=== PATIENT | female | born 1955 | race Caucasian/White ===

== ENCOUNTER 2017-02-04 23:41 | Emergency (ER) | payer MEDICARE, OTHER ==
--- NOTE | 2017-02-05 00:47 | ED.PDOC ---
History of Present Illness - General Chief Complaint: Head Injury Stated Complaint: fall / hit head and face Time Seen by Provider: 02/05/17 00:25 Source: patient, RN notes reviewed, Vital Signs reviewed Exam Limitations: no limitations - History of Present Illness Initial Comments: Patient comes to the ER with c/o injury to her L cheek and the back of her head. She tripped while leaving a high school reunion and struck her L cheek on the opening bar of a door. She then spun around and hit the back of her head on the floor. No LOC. No neck pain. Denies any other injuries. No visual changes. No loose teeth or dental pain. Occurred: just prior to arrival Severity: moderate Head Injury Location: other - L zygomatic arch Method of Injury: fell Loss of Consciousness: no loss of consciousness Associated Symptoms: denies symptoms Allergies/Adverse Reactions: Allergies NO KNOWN ALLERGY Allergy (Verified 02/04/17 23:56) Review of Systems - Review of Systems Constitutional: States: no symptoms reported EENTM: States: see HPI. Denies: blurred vision, double vision, nose pain, mouth pain Respiratory: States: no symptoms reported Cardiology: States: no symptoms reported Musculoskeletal: States: no symptoms reported. Denies: back pain, neck pain Skin: States: change in color - bruising L cheek Neurological: States: no symptoms reported All other Systems: No Change from Baseline Past Medical History (General) - Patient Medical History Hx Seizures: No Hx Stroke: No Hx Dementia: No Hx Asthma: No Hx of COPD: No Hx Cardiac Disorders: No Hx Congestive Heart Failure: No Hx Pacemaker: No Hx Hypertension: Yes Hx Thyroid Disease: Yes - hyper Hx Diabetes: No Hx Gastroesophageal Reflux: No Hx Renal Disease: No Hx Cancer: Yes - Basal cell carcinoma Hx of HIV: No Hx Hepatitis C: No Hx MRSA: No Surgical History: appendectomy, tonsillectomy, other - Vaccination History Hx Tetanus, Diphtheria Vaccination: No Hx Influenza Vaccination: No Hx Pneumococcal Vaccination: No Immunizations Up to Date: Yes - Social History Hx Tobacco Use: No Hx Alcohol Use: No Hx Substance Use: No - Activities of Daily Living Hospice Agency (if applicable):: None - Female History Patient is a Female of Child Bearing Age (10 -59 yrs old): No Family Medical History - Family History Mother Family History: Unknown Physical Exam - Physical Exam General Appearance: Alert, Comfortable, No apparent distress, Well Developed, Well Groomed, Well Hydrated, Well Nourished Head Injury: ecchymosis - L zygomatic arch, swelling - L zygomatic arch & L occipital area, tenderness - L zygomatic arch & L occipial area Eye Exam: bilateral normal ENT Exam: hearing grossly normal, no dental injury Neck Exam: non-tender, full range of motion, normal alignment, normal inspection Cardiovascular/Respiratory: regular rate, rhythm, no M/R/G, normal breath sounds , no respiratory distress Extremity: normal range of motion, non-tender, normal inspection 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, 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 Exam: normal hearing, normal speech, PERRL, other - EOMI, CN 2-12 are grossly intact Coordination/Gait: normal gait Motor/Sensory: no motor deficit, no sensory deficit Skin Exam: normal color, warm/dry Comments: Vital Signs 02/04/17 23:56 Temperature 98.4 F Pulse Rate [ 60 Left radial] Respiratory 20 Rate Blood Pressure 176/95 [Left Arm] O2 Sat by Pulse 94 L Oximetry - Diana Coma Score Best Eye Response (Diana): (4) open spontaneously Best Verbal Response (Diana): (5) oriented Best Motor Response ([place]): (6) obeys commands Progress - EKG/XRAY/CT CT Ordered: Yes - No orbital fracture per Radiologist Departure - Departure Clinical Impression: Contusion of scalp, initial encounter, Hematoma, Fall on same level as cause of accidental injury Contusion of face Qualifiers: Encounter type: initial encounter Qualified Code(s): S00.83XA - Contusion of other part of head, initial encounter Time of Disposition: 01:19 Disposition: Discharge to Home or Self Care Condition: Good Departure Forms: ED Discharge - Pt. Copy, Patient Portal Self Enrollment Instructions: DI for Contusion, Eye Contusion Diet: resume usual diet Activity: increase activity as tolerated
--- NOTE | 2017-02-05 00:54 | CT ---
EXAM DATE: 02/05/2017 12:25 AM CDT. PROCEDURE: CT ORBITS WITHOUT IV CONTRAST. INDICATION: Fell hitting L zygomatic arch on bar across door. COMPARISON: None. TECHNIQUE: Axial CT images of the orbits were obtained without intravenous contrast. Coronal and sagittal reformatted images are provided. This exam was performed according to our departmental dose-optimization program which includes use of Automated Exposure Control, adjustment of the mA and/or kV according to patient size and/or use of iterative reconstruction technique. FINDINGS: No orbital wall fracture. There is soft tissue contusion and hematoma along the left inferior periorbital region and left malar face. The globes demonstrate normal size and contour. The extraocular muscles are symmetric. The optic nerves and intraorbital fat are unremarkable. The partially visualized brain is normal. The mastoid air cells and paranasal sinuses are well aerated. Unremarkable parotid glands and partially visualized muscles of mastication. IMPRESSION: Left periorbital and malar facial contusion with hematoma. No orbital fracture. Unremarkable intraorbital contents. Electronically signed by: Deric Carbajal MD 02/05/2017 12:53 AM CDT
[2017-02-05 01:28] VITALS: BP 162/75; TEMP 98.2; O2SAT 95
== END 2017-02-05 01:28 | disposition home or self-care (01) ==
LOC: ER 23:41
DX: S00.03XA Contusion of scalp, initial encounter (principal); I10 Essential (primary) hypertension; E05.90 Thyrotoxicosis, unspecified without thyrotoxic crisis or storm; Z85.820 Personal history of malignant melanoma of skin; W01.198A Fall on same level from slipping, tripping and stumbling with subsequent striking against other object, initial encounter; Y92.89 Other specified places as the place of occurrence of the external cause